=== PATIENT | male | born 2000 | race Caucasian/White ===

== ENCOUNTER 2024-04-23 05:39 | Emergency (ER) | payer OTHER ==
[~2024-04-23] VITALS: Ht 180.3 cm; Wt 117.9 kg
[2024-04-23] MEDS ORDERED: ONDANSETRON HCL/PF 4 MG/2 ML VIAL ONE (06:06)
[2024-04-23] MEDS: ONDANSETRON HCL/PF - ER 4 MG/2 ML VIAL IV ONE (06:12)
[2024-04-23] MEDS: IV NS 0.9% 1,000 ML IV ONE (06:12)
[2024-04-23] MEDS ORDERED: KETOROLAC TROMETHAMINE 15 MG/ML VIAL ONE ×2 (06:17→08:40)
[2024-04-23] MEDS ORDERED: MORPHINE SULFATE INJ 4 MG/ML DISP.SYRIN ONE (06:18)
[2024-04-23 06:28] LABS: BASOPHILS # (AUTO) 0.1 K/uL (0.0-0.2); EOSINOPHILS # (AUTO) 0.2 K/uL (0.0-0.7); EOSINOPHILS % (AUTO) 1.5 % (0.0-6.0); HEMATOCRIT 45 % (39-51); HEMOGLOBIN 15.6 g/dL (13.5-17.5); LYMPHOCYTES # (AUTO) 4.7 K/uL (0.8-4.8); LYMPHOCYTES % (AUTO) 36.2 % (20.0-44.0); MEAN CORPUSCULAR HEMOGLOBIN 30 PG (26.0-33.0); MEAN CORPUSCULAR HGB CONC 35 g/dl (31.0-36.0); MEAN CORPUSCULAR VOLUME 87 fL (80-96); MONOCYTES # (AUTO) 1.4 K/uL (0.1-1.30); NEUTROPHILS # (AUTO) 6.5 K/uL (1.8-8.9); NEUTROPHILS % (AUTO) 50.3 % (43.0-81.0); PLATELET COUNT (AUTO) 334 K/uL (150-450); RED BLOOD CELL COUNT(AUTO) 5.18 MIL/uL (4.5-6.0); RED CELL DISTRIBUTION WIDTH 13.1 % (11.5-15.0); WHITE BLOOD COUNT (AUTO) 12.9 K/uL (4.3-11.0)
[2024-04-23] MEDS: MORPHINE SULFATE INJ 2 MG/ML DISP.SYRIN IV ONE (06:30)
[2024-04-23] MEDS: IV NS 0.9% 1,000 ML BAG IV ONE (06:30)
[2024-04-23] MEDS: KETOROLAC TROMETHAMINE 15 MG/ML VIAL IV ONE ×2 (06:30→09:00)
[2024-04-23 06:45] LABS: APPEARANCE,URINE SLIGHTLY CLOUDY (CLEAR); BILIRUBIN,URINE NEGATIVE (NEGATIVE); BLOOD, URINE TRACE-INTA Ery/uL (NEGATIVE); COLOR,URINE YELLOW (YELLOW); KETONES,URINE NEGATIVE (NEGATIVE); LEUKOCYTE ESTERASE ,URINE NEGATIVE (NEGATIVE); NITRITE, URINE NEGATIVE (NEGATIVE); PROTEIN,URINE NEGATIVE (NEGATIVE); UGLUCOSE NEGATIVE (NEGATIVE); UROBILINOGEN,URINE 0.2 EU/dL (0.2)
[2024-04-23 06:48] LABS: ADD URINE CULTURE NO; BACTERIA,URINE Rare /HPF (None Seen); SQUAMOUS EPITHELIAL CELL,UR Few /HPF (None Seen); WBC,URINE 0-2 /HPF (0-3)
[2024-04-23 06:51] LABS: CALCIUM, SERUM 9.6 mg/dL (8.5-10.1); CREATININE 1.1 mg/dL (0.6-1.3); POTASSIUM 3.3 mmol/L (3.5-5.1)
[2024-04-23 07:00] LABS: ALBUMIN 3.6 g/dL (3.4-5.0); BILIRUBIN,TOTAL 1.2 mg/dL (0.2-1.0); TOTAL PROTEIN, SERUM 7.6 g/dL (6.4-8.2)
[2024-04-23 07:23] LABS: AMPHETAMINE, URINE NEGATIVE (NEGATIVE); BENZODIAZEPINE, URINE NEGATIVE (NEGATIVE); OPIATE, URINE NEGATIVE (NEGATIVE); PHENCYCLIDINE SCREEN,URINE NEGATIVE (NEGATIVE)
[2024-04-23 07:28] VITALS: TEMP 98.6
[2024-04-23] MEDS: HYDROMORPHONE INJ 2 MG/ML DISP.SYRIN IV ONE (07:30)
[2024-04-23] MEDS ORDERED: HYDROMORPHONE 1 MG/1 ML DISP.SYRIN ONE (07:34)
[2024-04-23 07:53] LABS: CANNABINOID, URINE POSITIVE (NEGATIVE); COCCAINE, URINE POSITIVE (NEGATIVE)
[2024-04-23 08:11] LABS: BARBITURATE, URINE NEGATIVE (NEGATIVE)
[2024-04-23] MEDS ORDERED: NALO4SPR BNOSTRILS (08:21)
[2024-04-23] MEDS ORDERED: IBUP800T54 PO (08:21)
[2024-04-23] MEDS ORDERED: TAMS-12 PO (08:21)
[2024-04-23] MEDS ORDERED: HYDR-3980 PO (08:21)
[2024-04-23] MEDS ORDERED: HYDROCODONE/APAP 5/325MG TABLET ONE (08:35)
[2024-04-23] MEDS: HYDROCODONE/APAP 5/325MG TABLET PO ONE (08:59)
[2024-04-23 09:25] VITALS: BP 134/68; O2SAT 100
== END 2024-04-23 08:57 | disposition home or self-care (01) ==
LOC: ER 05:50
DX: N20.1 Calculus of ureter (principal); R11.2 Nausea with vomiting, unspecified; I10 Essential (primary) hypertension; F19.10 Other psychoactive substance abuse, uncomplicated; F17.200 Nicotine dependence, unspecified, uncomplicated; Z87.19 Personal history of other diseases of the digestive system
CPT/HCPCS: 99285; 74176; 96374; 96375; 76705; 96361; 96376; 85025; 87086; 83690; 36415; 80053; 80307; 81001; J2270; J2405 ×2; J7030; A4223; J1170; J1885 ×2